=== PATIENT | female | born 1975 | race Caucasian/White ===

== ENCOUNTER 2016-10-26 07:34 | Day surgery (SDC) | payer OTHER ==
[2016-10-26] VITALS (24 sets, daily range): BP systolic 100–125; BP diastolic 67–82; PULSE 50–74; RESP 13–27; Ht 170.2 cm; Wt 75.7 kg
[~2016-10-26] VITALS: Ht 170.2 cm; Wt 75.7 kg
[2016-10-26] MEDS ORDERED: ASPI-664 PO (08:09)
[2016-10-26] MEDS ORDERED: TOLT4CAP13 PO (08:10)
[2016-10-26] MEDS ORDERED: ISOS30TA5 PO (08:11)
[2016-10-26 08:50] LABS: ADD SCAN DIFF NO
[2016-10-26 08:51] LABS: BASOPHILS % 0.5 % (0.0-2.0); EOSINOPHILS # 0.1 10^3/ul (0.0-0.5); EOSINOPHILS % 3.6 % (0.0-7.0); HEMATOCRIT 31.6 % (37.0-47.0); HEMOGLOBIN 9.7 g/dl (12.0-16.0); LYMPHOCYTES # 1.4 10^3/ul (0.8-2.9); LYMPHOCYTES % 38.7 % (15.0-51.0); MEAN CORPUSCULAR HEMOGLOBIN 23.3 pg (29.0-33.0); MEAN CORPUSCULAR HGB CONC 30.7 g/dl (32.0-37.0); MEAN CORPUSCULAR VOLUME 75.8 fl (82.0-101.0); MEAN PLATELET VOLUME 8.5 fl (7.4-10.4); MONOCYTE # 0.4 10^3/ul (0.3-0.9); MONOCYTES % 10.2 % (0.0-11.0); NEUTROPHIL # 1.7 10^3/ul (1.6-7.5); PLATELET COUNT 240 10^3/UL (140-415); RED BLOOD COUNT 4.17 10^6/ul (4.20-5.40); RED CELL DISTRIBUTION WIDTH 16.4 % (11.5-14.5); WHITE BLOOD COUNT 3.6 10^3/ul (4.8-10.8)
[2016-10-26] MEDS ORDERED: NITROGLYCERIN (IC) 100 MCG/ML INJ ONE (09:07)
[2016-10-26] MEDS ORDERED: HEPARIN 1000 UNITS/ML 10 ML INJ ONE (09:07)
[2016-10-26] MEDS ORDERED: LIDOCAINE 1% (MDV) 20 ML INJ ONE (09:07)
[2016-10-26] MEDS ORDERED: VERAPAMIL 5 MG INJ ONE (09:07)
[2016-10-26] MEDS ORDERED: FENTAnyl 50 MCG/ML VIAL ONE (09:07)
[2016-10-26] MEDS ORDERED: SOD CHLORIDE 0.9% 500 ML ONE (09:07)
[2016-10-26] MEDS ORDERED: MIDAZOLAM 1 MG/ML 2 ML INJ ONE (09:07)
[2016-10-26] MEDS ORDERED: IODIXANOL LOCM 100 ML BTL ONE (09:07)
[2016-10-26 09:10] LABS: POTASSIUM 4.6 mmol/L (3.5-5.1)
[2016-10-26 09:20] LABS: CALCIUM 8.9 mg/dl (8.4-10.2); CREATININE 0.6 mg/dl (0.44-1.00)
[2016-10-26 09:28] LABS: INR 0.95; PROTIME 12.7 Sec (12.2-14.2)
[2016-10-26 09:29] LABS: PARTIAL THROMBOPLASTIN TIME 25.9 Sec (25.0-35.0)
[2016-10-26] MEDS ORDERED: SOD CHLORIDE 0.9% 1,000 ML IV SCH (10:52)
[2016-10-26] MEDS ORDERED: ACETAMINOPHEN 325 MG TAB PO PRN (11:00)
[2016-10-26] MEDS ORDERED: AL HYDROX/MG HYDROX/SIMETH 30 ML CUP PO PRN (11:00)
[2016-10-26] MEDS ORDERED: ONDANSETRON 4 MG INJ IV PRN (11:00)
--- NOTE | 2016-10-26 11:00 | PDOCDIS ---
Discharge Instructions CONDITION Patient Condition: Good HOME CARE INSTRUCTIONS: Diet Instructions: Low Fat /Cholesterol ACTIVITY: Activity Restrictions: Avoid heavy lifting (x 3 days) Do not Drive (x 1 day) Orlando De Jesus DO Oct 26, 2016 11:00
--- NOTE | 2016-10-26 11:15 | CARRPT ---
DATE OF PROCEDURE: 10/26/2016 PROCEDURES: 1. Left heart catheterization. 2. Right and left coronary angiogram. 3. Interpretation and supervision of right ____. 4. Right radial artery approach. PATIENT HISTORY: This is a 40-year-old patient who presents with recurrent chest pain and shortness of breath with exertion. FINDINGS: HEMODYNAMICS: Aortic pressure was 105/55. CORONARY ANATOMY: 1. Left main is a large caliber vessel with no significant disease. 2. Circumflex is a medium caliber vessel with no significant disease. 3. LAD is a medium to large caliber vessel with no significant disease. 4. RCA is a medium caliber vessel with no significant disease. DESCRIPTION OF PROCEDURE: The patient was brought to the lab scientist after informed consent. Right ra dial access was obtained using ultrasound guidance input and a 5-Norwegian sheath was placed. The trina ent with spasming noted even with placing a sheath. We used a 5-Norwegian Archie and engaged the RCA. Angiogram was performed. We were unable to engage the left main with a Archie, so we switched it out for a 5-Norwegian JL 3.0 diagnostic catheter. Left main was engaged. Angiogram was performed. There was no evidence of any obstructive epicardial coronary artery disease. All catheters and wires wer e removed. There were no immediate complications. DIAGNOSIS: No epicardial coronary artery disease. COMPLICATIONS: None. ESTIMATED BLOOD LOSS: Minimal. RECOMMENDATIONS: Medical management. Evaluate other causes of patient's symptoms. Dictated By: SID CIFUENTES/ALETHEA Conf#: [id number] DID#: [id number]
--- NOTE | 2016-10-29 15:20 | RADRPT ---
Vent Rate: 58 bpm RR Interval: 0 msec PA Interval: 182 msec QRS Duration: 84 msec QT Interval: 414 msec QTC Interval: 406 msec P-R-T [place]: 43 - 60 - 31 degrees Sinus bradycardia Otherwise normal ECG Electronically Signed By: Jaspal Kelly [id number]
== END 2016-10-26 15:10 | disposition home or self-care (01) ==
LOC: SDS 07:34
PROVIDERS: ATTEND Internal Medicine Cardiovascular Disease
DX: R07.9 Chest pain, unspecified (principal); R06.02 Shortness of breath
CPT/HCPCS: 80048; 85025; 85610; 85730; 93005; 93458; C1769; C1887; J1644; J2250; J3010; J7040; Q9967; Z7610